=== PATIENT | male | born 1955 | race Caucasian/White ===

== ENCOUNTER 2021-09-26 20:33 | Emergency (ER) | payer OTHER, MEDICAID ==
[~2021-09-26] VITALS: Ht 165.1 cm; Wt 80.0 kg
[2021-09-26 21:15] VITALS: BP 130/61
[2021-09-26] MEDS ORDERED: MECLIZINE 25MG TABLET PO ONE (22:45)
[2021-09-26] MEDS ORDERED: ACETAMINOPHEN 325MG TABLET PO ONE (23:00)
[2021-09-26 23:32] LABS: BASOPHILS % 0.4 % (0.0-2.0); EOSINOPHILS % 0.3 % (0.0-5.0); HEMATOCRIT. 39.2 % (42.0-52.0); HEMOGLOBIN. 13.4 g/dL (14.0-18.0); MEAN CORPUSCULAR HEMOGLOBIN 29.8 pg (28.0-32.0); MEAN CORPUSCULAR VOLUME 86.9 fL (80.0-94.0); MEAN PLATELET VOLUME 8.5 fl (7.4-10.4); MONOCYTES % 4.6 % (2.0-8.0); NEUTROPHILS % 79.7 % (40.0-76.0); PLATELET 244 x1000/uL (130-400); RED BLOOD CELL COUNT 4.52 mill/uL (4.7-6.1)
[2021-09-26 23:38] LABS: CHLORIDE 108 mEq/L (98-107)
== END 2021-09-27 01:19 | disposition left against medical advice (07) ==
LOC: ER 20:33
DX: R42 Dizziness and giddiness (principal); R11.2 Nausea with vomiting, unspecified; R51.9 Headache, unspecified; R00.1 Bradycardia, unspecified; R10.13 Epigastric pain; R07.89 Other chest pain
CPT/HCPCS: 36415; 71045; 80053; 84484; 85025; 93005; 99283; 99284; J8597

== ENCOUNTER 2023-06-11 18:00 | Emergency (ER) | payer MEDICARE, MEDICAID ==
[~2023-06-11] VITALS: Ht 170.2 cm; Wt 82.0 kg
[2023-06-11 18:12] VITALS: TEMP 98.4; O2SAT 99
[2023-06-11] MEDS ORDERED: ONDANSETRON 4MG ODT PO ONE (18:15)
[2023-06-11] MEDS ORDERED: LORAZEPAM 2MG/ML CPJ IM PRN (19:00)
[2023-06-12 01:15] VITALS: BP 141/78; PULSE 91; RESP 16
== END 2023-06-12 01:49 | disposition home or self-care (01) ==
LOC: ER 19:44
DX: T40.715A Adverse effect of cannabis, initial encounter (principal); R41.0 Disorientation, unspecified; R68.2 Dry mouth, unspecified; X58.XXXA Exposure to other specified factors, initial encounter; Y93.89 Activity, other specified; Y92.89 Other specified places as the place of occurrence of the external cause; Y99.8 Other external cause status
CPT/HCPCS: 93005; 99284